=== PATIENT | male | born 1995 | race Caucasian/White ===

== ENCOUNTER 2019-10-30 10:14 | Emergency (ER) | payer MEDICAID ==
[~2019-10-30] VITALS: Ht 177.8 cm; Wt 104.3 kg
[2019-10-30 11:51] LABS: Salicylate < 1.7 mg/dL (2.8-20.0)
[2019-10-30 11:52] LABS: Acetaminophen < 2.0 ug/mL (10-30)
[2019-10-30 14:24] LABS: Urine Bacteria NONE SEEN /hpf (None Seen); Urine Blood Negative /uL (Negative); Urine Hyaline Cast FEW /lpf (0 - 2); Urine Mucus FEW (None Seen); Urine Specific Gravity 1.035 (1.001-1.035); Urine WBC 3 /hpf (0 - 3)
[2019-10-30 14:36] LABS: Amphetamine Screen, Urine POSITIVE (NEGATIVE); Barbiturate Scree,Urine NEGATIVE (NEGATIVE); Benzodiazephine Screen, Urine NEGATIVE (NEGATIVE); Cannabinoid Screen, Urine POSITIVE (NEGATIVE); Cocaine Screen, Urine NEGATIVE (NEGATIVE); Opiate Scree,Urine NEGATIVE (NEGATIVE); Phencyclidine Screen, Urine NEGATIVE (NEGATIVE)
[2019-10-30] MEDS ORDERED: LORazepam 0.5 MG TAB PO ONE (19:45)
[2019-10-31] MEDS ORDERED: ACETAMINOPHEN 500 MG TAB PO ONE (11:45)
[2019-10-31] MEDS ORDERED: LORazepam 0.5 MG TAB PO SCH (14:45)
[2019-10-31] MEDS ORDERED: OLANZapine 5 MG TAB ONE (14:47)
[2019-10-31 21:08] VITALS: BP 125/79
[2019-10-31] MEDS ORDERED: OLANZapine 5 MG TAB PO ONE (22:00)
[2019-10-31] MEDS ORDERED: OLANZapine 5 MG TAB PO SCH (22:00)
[2019-10-31] MEDS ORDERED: LORazepam 0.5 MG TAB PO ONE (22:00)
== END 2019-10-31 21:30 | disposition short-term general hospital (02) ==
LOC: ER 10:14 → EDBD 10:14 → ER 10-31 21:30
DX: F25.9 Schizoaffective disorder, unspecified (principal); E86.0 Dehydration; F17.210 Nicotine dependence, cigarettes, uncomplicated; F15.10 Other stimulant abuse, uncomplicated; F41.9 Anxiety disorder, unspecified
CPT/HCPCS: 36415; 80307; 80320; 80329; 81001; 93005

== ENCOUNTER 2019-11-08 14:58 | Emergency (ER) | payer MEDICAID ==
[~2019-11-08] VITALS: Ht 188 cm; Wt 99.8 kg
[2019-11-08 15:15] VITALS: BP 126/88
[2019-11-08] MEDS ORDERED: SODIUM CHLORIDE 0.9% 1,000 ML IV ONE ×2 (15:20)
[2019-11-08] MEDS ORDERED: THIAMINE 100mg/ml INJ (200mg/2ml VIAL) IV ONE (15:30)
[2019-11-08 16:02] LABS: Basophils # (auto) 0 uL; Basophils % (auto) 0.4 % (0.0-2.0); Eosinophils # (auto) 0.1 uL; Eosinophils % (auto) 1.2 % (0.0-7.0); Hematocrit 41.5 % (41.0-53.0); Lymphocytes # (auto) 1.5 uL; Lymphocytes % (auto) 17.1 % (10.0-50.0); Mean Corpuscular Hemoglobin 32.4 pg (28.0-32.0); Mean Corpuscular Hgb Conc. 36.1 g/dL (32.0-36.0); Mean Corpuscular Volume 89.6 fL (80.0-100.0); Monocytes # (auto) 0.6 uL; Monocytes % (auto) 6.6 % (0.0-12.0); Neutrophils # (auto) 6.8 uL; Neutrophils % (auto) 74.7 % (37.0-80.0); Nucleated Red Blood Cells % 0.1 %; Platelet Count (auto) 215 10^3/uL (140-450); Red Blood Cells 4.63 10^6/uL (4.5-5.90); Red Cell Distribution Width 15.3 % (11.8-14.3)
[2019-11-08 16:04] LABS: Albumin 4.4 g/dL (3.4-5.0); Calcium 9.2 mg/dL (8.5-10.1); Potassium 3.5 mmol/L (3.5-5.1)
[2019-11-08 16:06] LABS: BUN/Creatinine Ratio 11.5
[2019-11-08 16:08] LABS: Bilirubin, Total 5.1 mg/dL (0.2-1.0); Total Protein 7.5 g/dL (6.4-8.2)
[2019-11-08 17:05] LABS: Salicylate < 1.7 mg/dL (2.8-20.0)
[2019-11-08 17:07] LABS: Acetaminophen < 2.0 ug/mL (10-30)
== END 2019-11-08 19:05 | disposition home or self-care (01) ==
LOC: ER 14:58 → EDBD 14:58 → ER 19:05
DX: E86.0 Dehydration (principal); F20.9 Schizophrenia, unspecified; R41.82 Altered mental status, unspecified; F12.10 Cannabis abuse, uncomplicated; F15.10 Other stimulant abuse, uncomplicated; F17.210 Nicotine dependence, cigarettes, uncomplicated
CPT/HCPCS: 36415; 80053; 80320; 80329; 85025